=== PATIENT | female | born 1935 | race Caucasian/White ===

== ENCOUNTER 2019-02-07 15:30 | Emergency (ER) | payer OTHER ==
[~2019-02-07] VITALS: Ht 160 cm; Wt 59.0 kg
== END 2019-02-07 19:39 | disposition home or self-care (01) ==
LOC: M.ERS 15:30
DX: I46.9 Cardiac arrest, cause unspecified (principal); Z88.5 Allergy status to narcotic agent; Z91.018 Allergy to other foods